=== PATIENT | female | born 1955 | race Caucasian/White ===

== ENCOUNTER 2017-06-21 18:47 | Emergency (ER) | payer OTHER ==
[~2017-06-21] VITALS: Ht 12.7 cm; Wt 84.4 kg
[~2017-06-21 18:47] MED LIST: ACE325 PO; DYA PO; HYDR-2966 PO; HYDR2TAB41 PO; IBUP600T22 PO; LISI-362 PO; LOR5/325 PO; VALA100062 PO; [UNRECOGNIZED DRUG - OTHER] PO
--- NOTE | 2017-06-21 18:52 | ER Report ---
History and Physical Time Seen By MD: 18:51 HPI/ROS CHIEF COMPLAINT: Influenza-like illness HISTORY OF PRESENT ILLNESS: 62-year-old female presents with flulike symptoms onset yesterday, associated with headache pain in the spine and back next stiffness denies cough chest pain or shortness of breath. History of HSV meningitis. Did not get flu shot this year because she does not believe in the flu shot. 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 However some patient care. Level of pain is in the thoracic spine. Feels achy. REVIEW OF SYSTEMS: Constitutional: Chills, fatigue and body aches Eyes: No discharge. ENT: No sore throat. Cardiovascular: No chest pain, no palpitations. Respiratory: No cough, no shortness of breath. Gastrointestinal: No abdominal pain, no vomiting. Genitourinary: No hematuria. Musculoskeletal: Otherwise negative Skin: No rashes. Neurological: No focal neurological deficits Allergies: Coded Allergies: Sulfamethoxazole (Verified Allergy, MYA ANJUM SYNDROME, 10/03/11) trimethoprim (Verified Allergy, MYA ANJUM SYNDROME, 10/03/11) Home Meds Active Scripts Hydrocodone Bit/Acetaminophen (HYDROCODON-ACETAMINOPHEN 5-325) 1 Each Tablet, 1 EACH PO Q4-6H for PAIN, #14 TAB TAKE ONE TABLET BY MOUTH EVERY 4-6 HOURS NEEDED FOR PAIN Prov:VIC OLGUIN MD 10/19/15 Ibuprofen (IBUPROFEN) 600 Mg Tablet, 1 TAB PO Q6H for PAIN, #30 TAB Prov:VIC OLGUIN MD 10/19/15 Reported Medications [[place] ] No Conflict Check, PO PRN Y for SHORTNESS OF BREATH 10/19/15 Hydrochlorothiazide (HYDROCHLOROTHIAZIDE) 25 Mg Tablet, 0.5 TAB PO QDAY, TAB 10/19/15 Lisinopril (LISINOPRIL) 10 Mg Tablet, 10 MG PO QDAY, TAB 10/19/15 Hx Smoking: Yes Smoking Status: Former Smoker Exposure to Second Hand Smoke?: Yes Hx Substance Use Disorder: No Hx Alcohol Use: Yes Constitutional Vital Sign - Last 24 Hours 06/21/17 06/21/17 18:56 21:11 Temp 98.8 Pulse 111 Resp 22 B/P (MAP) 162/86 Pulse Ox 94 O2 Delivery Room Air O2 Flow Rate 2.0 Physical Exam General Appearance: The patient is alert, has no immediate need for airway protection and no signs of toxicity. She is wearing a mask and appears anxious Eyes: Pupils equal and round no pallor or injection. ENT, Mouth: Mucous membranes are moist. Respiratory: There are no retractions, lungs are clear to auscultation. Cardiovascular: Regular rate and rhythm. No murmurs gallops or rubs Gastrointestinal: Abdomen is soft and non tender, no masses, bowel sounds normal. Neurological: No gross neuro deficits, normal mentation with slightly rapid speech due to anxiety Skin: Warm and dry, no rashes. Musculoskeletal: Neck is supple non tender. Extremities are nontender, nonswollen and have full range of motion. No edema DIFFERENTIAL DIAGNOSIS: After history and physical exam differential diagnosis was considered for influenza-like illness, pneumonia, upper respiratory infection., No signs of meningitis. Medical Decision Making Data Points Result Diagram: 06/21/17191106/21/171911 Laboratory Hematology Test 06/21/17 19:12 06/21/17 20:02 06/21/17 20:29 Red Blood Count 5.07 M/uL (4.17-5.56) Mean Corpuscular Volume 92.2 fL (80.0-96.0) Mean Corpuscular Hemoglobin 32.2 pg (26.0-33.0) Mean Corpuscular Hemoglobin Concent 34.9 g/dL (32.0-36.0) Red Cell Distribution Width 13.0 % (11.5-14.5) Mean Platelet Volume 8.5 fL (7.2-11.1) Neutrophils (%) (Auto) 80.7 % (39.4-72.5) Lymphocytes (%) (Auto) 14.1 % (17.6-49.6) Monocytes (%) (Auto) 4.6 % (4.1-12.4) Eosinophils (%) (Auto) 0.1 % (0.4-6.7) Basophils (%) (Auto) 0.5 % (0.3-1.4) Nucleated RBC Relative Count (auto) 0.0 /100WBC Neutrophils # (Auto) 5.8 K/uL (2.0-7.4) Lymphocytes # (Auto) 1.0 K/uL (1.3-3.6) Monocytes # (Auto) 0.3 K/uL (0.3-1.0) Eosinophils # (Auto) 0.0 K/uL (0.0-0.5) Basophils # (Auto) 0.0 K/uL (0.0-0.1) Nucleated RBC Absolute Count (auto) 0.00 K/uL Sodium Level 136 mmol/L (137-145) Potassium Level 3.7 mmol/L (3.5-5.0) Chloride Level 100 mmol/L (98-107) Carbon Dioxide Level 24 mmol/L (22-31) Blood Urea Nitrogen 12 mg/dl (7-18) Creatinine 1.10 mg/dl (0.52-1.04) Glomerular Filtration Rate Calc 50.2 Random Glucose 108 mg/dl (75-110) Calcium Level 9.4 mg/dl (8.4-10.2) Total Bilirubin 0.8 mg/dl (0.2-1.3) Aspartate Amino Transf (AST/SGOT) 45 U/L (0-35) Alanine Aminotransferase (ALT/SGPT) 106 U/L (0-56) Alkaline Phosphatase 134 U/L (0-126) Troponin I < 0.012 ng/ml Total Protein 8.2 gm/dl (6.3-8.2) Albumin 4.2 g/dl (3.5-5.0) Influenza Virus Type A (PCR) Negative (NEGATIVE) Influenza Virus Type B (PCR) Negative (NEGATIVE) Group A Streptococcus Screen Negative (NEGATIVE) Urine Color Yellow Urine Clarity Clear Urine pH 7.0 pH (4.8-9.5) Urine Specific [place] 1.019 Urine Protein Negative mg/dL (NEGATIVE) Urine Glucose (UA) Negative mg/dL (NEGATIVE) Urine Ketones Negative mg/dL (NEGATIVE) Urine Blood Negative (NEGATIVE) Urine Nitrite Negative (NEGATIVE) Urine Bilirubin Negative (NEGATIVE) Urine Urobilinogen Negative mg/dL (0.2-1.9) Urine Leukocyte Esterase Trace (NEGATIVE) Urine RBC <1 /HPF (0-2/HPF) Urine WBC 2 /HPF (0-5/HPF) Urine Squamous Epithelial Cells Many /LPF (</=FEW) Urine Bacteria Negative /HPF (NONE-FEW) Urine Mucus None /HPF (NONE-FEW) Chemistry Test 06/21/17 19:12 06/21/17 20:02 2/4/18 20:29 White Blood Count 7.1 k/uL (4.5-11.0) Red Blood Count 5.07 M/uL (4.17-5.56) Hemoglobin 16.3 g/dL (12.0-16.0) Hematocrit 46.7 % (34.0-47.0) Mean Corpuscular Volume 92.2 fL (80.0-96.0) Mean Corpuscular Hemoglobin 32.2 pg (26.0-33.0) Mean Corpuscular Hemoglobin Concent 34.9 g/dL (32.0-36.0) Red Cell Distribution Width 13.0 % (11.5-14.5) Platelet Count 203 K/uL (150-450) Mean Platelet Volume 8.5 fL (7.2-11.1) Neutrophils (%) (Auto) 80.7 % (39.4-72.5) Lymphocytes (%) (Auto) 14.1 % (17.6-49.6) Monocytes (%) (Auto) 4.6 % (4.1-12.4) Eosinophils (%) (Auto) 0.1 % (0.4-6.7) Basophils (%) (Auto) 0.5 % (0.3-1.4) Nucleated RBC Relative Count (auto) 0.0 /100WBC Neutrophils # (Auto) 5.8 K/uL (2.0-7.4) Lymphocytes # (Auto) 1.0 K/uL (1.3-3.6) Monocytes # (Auto) 0.3 K/uL (0.3-1.0) Eosinophils # (Auto) 0.0 K/uL (0.0-0.5) Basophils # (Auto) 0.0 K/uL (0.0-0.1) Nucleated RBC Absolute Count (auto) 0.00 K/uL Glomerular Filtration Rate Calc 50.2 Calcium Level 9.4 mg/dl (8.4-10.2) Total Bilirubin 0.8 mg/dl (0.2-1.3) Aspartate Amino Transf (AST/SGOT) 45 U/L (0-35) Alanine Aminotransferase (ALT/SGPT) 106 U/L (0-56) Alkaline Phosphatase 134 U/L (0-126) Troponin I < 0.012 ng/ml Total Protein 8.2 gm/dl (6.3-8.2) Albumin 4.2 g/dl (3.5-5.0) Influenza Virus Type A (PCR) Negative (NEGATIVE) Influenza Virus Type B (PCR) Negative (NEGATIVE) Group A Streptococcus Screen Negative (NEGATIVE) Urine Color Yellow Urine Clarity Clear Urine pH 7.0 pH (4.8-9.5) Urine Specific [place] 1.019 Urine Protein Negative mg/dL (NEGATIVE) Urine Glucose (UA) Negative mg/dL (NEGATIVE) Urine Ketones Negative mg/dL (NEGATIVE) Urine Blood Negative (NEGATIVE) Urine Nitrite Negative (NEGATIVE) Urine Bilirubin Negative (NEGATIVE) Urine Urobilinogen Negative mg/dL (0.2-1.9) Urine Leukocyte Esterase Trace (NEGATIVE) Urine RBC <1 /HPF (0-2/HPF) Urine WBC 2 /HPF (0-5/HPF) Urine Squamous Epithelial Cells Many /LPF (</=FEW) Urine Bacteria Negative /HPF (NONE-FEW) Urine Mucus None /HPF (NONE-FEW) Urinalysis Test 06/21/17 20:29 Urine Color Yellow Urine Clarity Clear Urine pH 7.0 pH (4.8-9.5) Urine Specific [place] 1.019 Urine Protein Negative mg/dL (NEGATIVE) Urine Glucose (UA) Negative mg/dL (NEGATIVE) Urine Ketones Negative mg/dL (NEGATIVE) Urine Blood Negative (NEGATIVE) Urine Nitrite Negative (NEGATIVE) Urine Bilirubin Negative (NEGATIVE) Urine Urobilinogen Negative mg/dL (0.2-1.9) Urine Leukocyte Esterase Trace (NEGATIVE) Urine RBC <1 /HPF (0-2/HPF) Urine WBC 2 /HPF (0-5/HPF) Urine Squamous Epithelial Cells Many /LPF (</=FEW) Urine Bacteria Negative /HPF (NONE-FEW) Urine Mucus None /HPF (NONE-FEW) ED Course/Re-evaluation ED Course Plan of care including labs and IV hydration was agreed upon prior to orders placed. Tylenol as ordered for body aches. She is afebrile here. I discussed the risk and benefits of lumbar puncture. 06/21/2017 9:34:23 pm patient is feeling better and ready for discharge. Headache is manageable and feels like it will go away when she sleeps. She does not need anything else for pain here she states muscle aches and neck stiffness have improved with ED therapy she has ibuprofen at home and will return should symptoms worsen precautions given. All questions answered and understood. Decision to Disposition Date: Jun 21, 2017 Decision to Disposition Time: 21:35 Depart Departure Latest Vital Signs Vital Signs Date Time Temp Pulse Resp B/P (MAP) Pulse Ox O2 Delivery O2 Flow Rate FiO2 06/21/17 21:11 2.0 06/21/17 18:56 98.8 111 22 162/86 94 Room Air Impression: Primary Impression: Influenza-like illness Condition: Improved Disposition: HOME OR SELF-CARE Referrals: CHRISTINA RENDON DO (PCP) New Scripts Oseltamivir Phosphate (TAMIFLU) 75 Mg Cap 75 MG PO BID, #10 CAP 0 Refills Prov: ZAHIRA HUTCHISON MD 06/21/17 Cyclobenzaprine Hcl (CYCLOBENZAPRINE HCL) 10 Mg Tablet 10 MG PO Q8H Y for MUSCLE SPASMS, #20 TAB 0 Refills Prov: ZAHIRA HUTCHISON MD 06/21/17 Patient Instructions: Viral Syndrome (ED) ZAHIRA HUTCHISON MD Jun 21, 2017 18:51
[2017-06-21] MEDS ORDERED: NS(*) 0.9% 1000 ML BAG 1,000 ML IV ONE (19:05)
[2017-06-21] MEDS ORDERED: ACETAMINOPHEN 500 MG TAB PO ONE (19:05)
[2017-06-21] MEDS ORDERED: DIAZEPAM 10 MG/2 ML SYR IVP ONE (19:10)
[2017-06-21 19:22] LABS: PLATELET COUNT, AUTOMATED 203 K/uL (150-450)
--- NOTE | 2017-06-21 19:52 | EKG ---
FACILITY: [facility] [place] PATIENT NAME: BRITNI HUGO : [id number] MR: [id number] V: [id number] EXAM DATE: ORDERING PHYSICIAN: ZAHIRA HUTCHISON TECHNOLOGIST: Jt Stanton Reason : Blood Pressure : / mmHG Vent. Rate : 087 BPM Atrial Rate : 087 BPM P-R Int : 150 ms QRS Dur : 092 ms QT Int : 364 ms P-R-T Axes : 028 005 039 degrees QTc Int : 438 ms Normal sinus rhythm Low voltage QRS Septal infarct (cited on or before 20-JUL-2013) Abnormal ECG When compared with ECG of 20-JUL-2013 12:34, Relatively unchanged Confirmed by BEN LLANOS ([id number]) on 06/21/2017 9:15:32 PM Referred By: Confirmed By:BEN LLANOS
--- NOTE | 2017-06-21 20:07 | RADIOLOGY IMAGING REPORT ---
FACILITY: [facility] - [place] PATIENT NAME: Ghazala Barger : 1955 MR: [id number] V: [id number] EXAM DATE: ORDERING PHYSICIAN: ZAHIRA HUTCHISON TECHNOLOGIST: Location: [facility] - [place] Patient: Ghazala Barger : 1955 Visit/Account:[id number] Date of Sevice: 06/21/2017 PORTABLE CHEST: Indication: Wheezing and dyspnea. Technique: A single frontal film was obtained. Comparison: None. Skeletal and soft tissue structures: Intact and unremarkable. Heart and mediastinum: Within normal limits. Lung early: Well-expanded. No focal or diffuse opacities. Pleural spaces: Unremarkable. Impression: No acute process. Report Dictated By: Dominick Salomon MD at 06/21/2017 8:00 PM Report E-Signed By: Dominick Salomon MD at 06/21/2017 8:03 PM WSN:[id number]
[2017-06-21] MEDS ORDERED: OSE75 PO (21:36)
[2017-06-21] MEDS ORDERED: CYCL10TA29 PO (21:36)
[2017-06-21 21:40] VITALS: BP 127/87
== END 2017-06-21 21:50 | disposition home or self-care (01) ==
LOC: ER 19:02
DX: R51 Headache (principal); M54.6 Pain in thoracic spine
CPT/HCPCS: 71045; 81001; 84484; 85025; 87081; 87502; 87880; 93005; 96361; 96374; 99284; J3360; J7030; 82040; 82247; 82310; 82374; 82435; 82565; 82947; 84075; 84132; 84155; 84295; 84450; 84460; 84520